=== PATIENT | male | born 1940 | race Hispanic/Latino ===

== ENCOUNTER → 2018-02-21 | Day surgery (SDC) | payer MEDICARE ==
[~2018-02-21] MED LIST: LABETALOL HCL 5 MG/ML 20ML VIAL ONE; MIDAZOLAM HCL 2 MG/2 ML VIAL ONE; OR PHACO EYE KIT ONE; PREOP PHACO EYE KIT ONE; VALSARTAN PO
== END | disposition home or self-care (01) ==
LOC: OR 09:02
PROVIDERS: ATTEND Ophthalmology
DX: H25.11 Age-related nuclear cataract, right eye (principal); I10 Essential (primary) hypertension
CPT/HCPCS: 66984; J2250; J3490

== ENCOUNTER → 2018-03-21 | Day surgery (SDC) | payer MEDICARE ==
[~2018-03-21] MED LIST changes: +FENTANYL CITRATE/PF 100MCG/2 ML INJ ONE; -LABETALOL HCL 5 MG/ML 20ML VIAL ONE
== END | disposition home or self-care (01) ==
LOC: OR 09:40
PROVIDERS: ATTEND Ophthalmology
DX: H25.12 Age-related nuclear cataract, left eye (principal); I10 Essential (primary) hypertension; I45.10 Unspecified right bundle-branch block; I49.3 Ventricular premature depolarization; F41.9 Anxiety disorder, unspecified; Z88.8 Allergy status to other drugs, medicaments and biological substances
CPT/HCPCS: 66984; J2250; V2788